=== PATIENT | male | born 1965 | race Caucasian/White ===

== ENCOUNTER 2019-09-04 10:19 | Emergency (ER) | payer BC ==
[2019-09-04] MEDS ORDERED: Ibuprofen 800 MG Tab ONE (11:00)
--- NOTE | 2019-09-04 11:45 | EDM.PDOC ---
ED HPI GENERAL MEDICAL PROBLEM - General Chief Complaint: General Stated Complaint: L Rib Pain Time Seen by Provider: 09/04/19 11:00 Source of Information: Reports: Patient History Limitations: Reports: No Limitations - History of Present Illness INITIAL COMMENTS - FREE TEXT/NARRATIVE: This patient presents to the ED for evaluation of chest wall pain. He states he got off balance fell sideways while dressing. He landed on his left lateral chest causing pain. This occurred last night and he did sleep ok but has increased pain today. The pain is particularly significant when taking a deep breath. He states he had a minor illness this week as well but believes that has resolved. He denies other injuries or concerns. Onset: Sudden Onset Date: 09/03/19 Onset Time: 22:00 Duration: Getting Worse Location: Reports: Chest Quality: Reports: Dull, Stabbing Severity: Moderate Improves with: Reports: None Worsens with: Reports: Breathing, Movement Associated Symptoms: Reports: No Other Symptoms Left Upper Trunk Pain Score (Numeric/FACES): 4 Past Medical History - Past Health History Medical/Surgical History: Denies Medical/Surgical History Social & Family History - Family History Family Medical History: Noncontributory - Tobacco Use Smoking Status *Q: Current Every Day Smoker Years of Tobacco use: 27 Packs/Tins Daily: 0.5 Used Tobacco, but Quit: Yes Month/Year Tobacco Last Used: 09/04/2019 Tobacco Use Comment: Pt current smoker, quit smoking for 2 years, started one year prior to smoking less than 0.5 packs per day. Second Hand Smoke Exposure: No - Caffeine Use Caffeine Use: Reports: Coffee - Recreational Drug Use Recreational Drug Use: No ED ROS GENERAL - Review of Systems Review Of Systems: Comprehensive ROS is negative, except as noted in HPI. ED EXAM, GENERAL - Physical Exam Exam: See Below Exam Limited By: No Limitations General Appearance: Alert, WD/WN, No Apparent Distress Eye Exam: Bilateral Eye: PERRL Ears: Normal External Exam Nose: Normal Inspection Throat/Mouth: Normal Inspection Head: Atraumatic, Normocephalic Neck: Normal Inspection, Full Range of Motion Respiratory/Chest: No Respiratory Distress, Lungs Clear, Normal Breath Sounds, No Accessory Muscle Use, Other (tenderness with palpation of left lateral chest wall. No discoloration, swelling, or deformity noted.) Cardiovascular: Regular Rate, Rhythm Back Exam: Normal Inspection, Full Range of Motion Extremities: Normal Inspection, Normal Range of Motion Neurological: Alert, Oriented Skin Exam: Warm, Dry Course - Vital Signs Last Recorded V/S: Last Vital Signs Temp 37.2 C 09/04/19 10:30 Pulse 96 09/04/19 10:54 Resp 16 09/04/19 10:54 BP 151/91 H 09/04/19 10:54 Pulse Ox 100 09/04/19 10:54 - Orders/Labs/Meds Orders: Active Orders 24 hr Category Date Time Status Chest 2V [CR] Stat Exams 09/04/19 10:49 Taken - Re-Assessments/Exams Free Text/Narrative Re-Assessment/Exam: 09/04/19 11:46 This patient presents for evaluation after experiencing left later rib pain following a fall. Signs and symptoms are consistent with a rib contusion. A broad differential was considered including pneumothorax, rib fracture, hemothorax, sprain, strain, other fracture, nerve impingement/compromise, referred pain. A chest x-ray is negative for acute findings. The sensitivity for rib fracture on chest x-ray was discussed with patient and if symptoms continue or progress may need CT of chest; I do not feel with the patients risk/ benefit ratio and clinical symptoms this is required at this time. Supportive outpatient management is indicated and he was given ibuprofen, 800 mg tablets to use every 6-8 hours. The patients head to toe trauma exam is otherwise negative and reassuring; no further workup indicated. Rest, ice, pain medicine treatment was discussed with the patient. Close follow-up with patient's primary care physician per discharge precautions. Rib contusion discharge instructions given for home. Departure - Departure Time of Disposition: 11:40 Disposition: DC/Tfer to [facility] 03 Condition: Good Clinical Impression: Contusion of rib on left side - Discharge Information *PRESCRIPTION DRUG MONITORING PROGRAM REVIEWED*: Not Applicable Referrals: PCP,None [Primary Care Provider] - Sepsis Event Note - Evaluation Sepsis Screening Result: No Definite Risk - Focused Exam Vital Signs: Vital Signs Temp Pulse Resp BP Pulse Ox 09/04/19 10:54 96 16 151/91 H 100 09/04/19 10:30 37.2 C 92 16 159/100 H 09/04/19 10:28 89 16 156/100 H 100 Date Exam was Performed: 09/04/19 Time Exam was Performed: 11:40 - My Orders Last 24 Hours: My Active Orders 09/04/19 10:49 Chest 2V [CR] Stat - Assessment/Plan Last 24 Hours: My Active Orders 09/04/19 10:49 Chest 2V [CR] Stat
--- NOTE | 2019-09-04 13:21 | CR ---
DATE OF SERVICE: 09/04/19 CLINICAL DATA: fall, rib pain left lateral PA AND LATERAL CHEST: Comparison is made to a prior exam dated 11/14/13. The heart size is normal. The lungs are clear. No pneumothorax. No pleural effusions. No evidence of acute intrathoracic disease. [id number] [facility]
== END 2019-09-04 11:48 ==
LOC: LB.ED 10:19
DX: S20.212A Contusion of left front wall of thorax, initial encounter (principal); F17.210 Nicotine dependence, cigarettes, uncomplicated; W01.0XXA Fall on same level from slipping, tripping and stumbling without subsequent striking against object, initial encounter
CPT/HCPCS: 71046; 99283; A9270

== ENCOUNTER 2021-08-10 11:46 | Emergency (ER) | payer BC ==
[2021-08-10] MEDS ORDERED: Lisinopril 10 MG Tab PO ONE (12:09)
== END 2021-08-10 12:30 | disposition home or self-care (01) ==
LOC: LB.ED 11:46
DX: I10 Essential (primary) hypertension (principal)
CPT/HCPCS: 99283; A9270

== ENCOUNTER 2024-04-08 15:59 | Emergency (ER) | payer OTHER ==
[2024-04-08] MEDS: Aspirin 81 MG Tab.Chew PO ONE (16:16)
[2024-04-08] MEDS: hydrALAZINE 20 MG/ML SDV IVPUSH SCH (17:07)
[2024-04-08] MEDS: hydrALAZINE 20 MG/ML SDV ONE (17:16)
[2024-04-08] MEDS ORDERED: hydrALAZINE 25 MG Tab ONE (18:45)
[2024-04-08 18:59] VITALS: BP 159/97; PULSE 76
== END 2024-04-08 18:52 | disposition home or self-care (01) ==
LOC: LB.ED 15:59
DX: I11.9 Hypertensive heart disease without heart failure (principal); Z79.899 Other long term (current) drug therapy; Z87.891 Personal history of nicotine dependence
CPT/HCPCS: 36415; 71046; 84484; 85379; 93005; 93010; 96374; 99284; 99285-25; A9270-GY; J0360

== ENCOUNTER 2025-05-23 13:11 | Emergency (ER) | payer OTHER ==
[2025-05-23] MEDS ORDERED: Sodium Chloride 0.9% 10 ML Syringe FLUSH PRN (13:32)
[2025-05-23 13:46] LABS: BASOPHILS ABSOLUTE AUTO 0.06 K/uL (0.02-0.10); BASOPHILS PERCENT AUTO 1.1 % (0.0-0.5); EOSINOPHILS ABSOLUTE AUTO 0.13 K/uL (0.04-0.40); EOSINOPHILS PERCENT AUTO 2.5 % (1.0-5.0); LYMPHOCYTES ABSOLUTE AUTO 1.14 K/uL (1.50-4.00); LYMPHOCYTES PERCENT AUTO 21.6 % (20.0-40.0); MEAN PLATELET VOLUME 9.3 fL (6.0-10.0); MONOCYTES ABSOLUTE AUTO 0.48 K/uL (0.20-0.80); MONOCYTES PERCENT AUTO 9.1 % (3.0-10.0); NEUTROPHILS ABSOLUTE AUTO 3.46 K/uL (2.00-7.50); NEUTROPHILS PERCENT AUTO 65.7 % (45.0-70.0); PLATELET COUNT,PLT 253 K/uL (150-400); RED BLOOD CELL COUNT 3.79 M/uL (4.50-6.50); RED CELL DISTRIBUTION WIDTH 14.2 % (11.0-16.0); WHITE BLOOD CELL COUNT,WBC 5.3 K/uL (4.0-11.0)
[2025-05-23 14:11] LABS: A/G RATIO 1.1 (0.8-2.0); ALANINE AMINOTRANSFERASE,ALT 25.0 U/L (12-78); ASPARTATE AMNIOTRANSFERASE,AST 17.0 U/L (15-37); BILIRUBIN TOTAL 0.2 mg/dL (0.0-1.0); BLOOD UREA NITROGEN,BUN 18.0 mg/dL (8-26); CARBON DIOXIDE,CO2 26.8 mmol/L (21.0-32.0); CHLORIDE,CL 108.0 mmol/L (98-107); CREATININE 1.11 mg/dL (0.70-1.30); EST CRCL DRUG DOSING (CG) 67.61 mL/min; ESTIMATED GFR 76.0 mL/min (>60); GLUCOSE RANDOM 106.0 mg/dL (74-100); POTASSIUM,K 4.6 mmol/L (3.5-5.1); PROTEIN TOTAL,TP 7.5 g/dL (6.4-8.2); SODIUM,NA 144.0 mmol/L (136-145); TROPONIN I HIGH SENSITIVITY 19.4 pg/ml (<=60.4)
[2025-05-25 20:31] LABS: IRON BINDING CAPACITY TOTAL 430 ug/dL (240-450); IRON,SERUM OR PLASMA 18 ug/dL (45-182); TRANSFERRIN SATURATION 4 %sat (20-50)
== END 2025-05-23 15:03 | disposition home or self-care (01) ==
LOC: LB.ED 13:11
DX: R60.0 Localized edema (principal); I10 Essential (primary) hypertension; D64.9 Anemia, unspecified; Z79.899 Other long term (current) drug therapy
CPT/HCPCS: 36415; 71045; 80053; 82607; 82746; 83540; 83550; 83735; 83880; 84484; 85025; 85379; 93005; 99285-25